=== PATIENT | female | born 1960 | race Caucasian/White ===

== ENCOUNTER 2021-06-23 10:01 | Day surgery (SDC) | payer OTHER, SELFPAY ==
[2021-06-23] VITALS (8 sets, daily range): BP systolic 91–127; BP diastolic 57–79; PULSE 61–78; RESP 10–20; TEMP 36.1–36.9; O2SAT 93–98; BMI 38.7
[2021-06-23] MEDS: LACTATED RINGERS 1,000 ML 84 ML IV (10:49)
--- NOTE | 2021-06-23 12:00 | PM.PREOP ---
Pre-operative Note COVID-19 COVID-19 status: Negative Result date/Date tested (Pos, Neg/Pending): 06/22/21 Interval Note History & Physical reviewed/Exam performed by Physician: Yes Changes to H&P: No ASA Class (for procedural sedation): II
[2021-06-23] MEDS: ONDANSETRON 4 MG/2 ML INJ IV (12:08)
[2021-06-23] MEDS: MIDAZOLAM 5 MG/5 ML VIAL IV (12:28)
[2021-06-23] MEDS: fentaNYL 250 MCG/5 ML INJ IV (12:28)
--- NOTE | 2021-06-23 12:42 | PM.OP.COLON ---
Operative Date/Time/Diagnoses Date of procedure: 06/23/21 Time of procedure: 12:42 Pre-op diagnosis: Rectal bleeding Post-op diagnosis: same Procedure & Clinicians Study performed: Colonoscopy Same procedure as scheduled: Yes Indications: Rectal bleeding Surgeon: Carlitos Dennis Procedure Notes SCOAP/Timeout: Yes Procedure in detail: Procedure: The patient was brought to the endoscopy suite, placed in left lateral decubitus position. The patient was connected to monitoring devices. A time-out was performed. Sedation was administered. Once the patient was adequately sedated, a digital rectal exam was performed and was normal. The scope was then inserted and advanced to the cecum where the appendiceal orifice was identified and photographed. The scope was then slowly withdrawn over greater than 6 minutes. Mucosa was thoroughly inspected. There were no polyps. There were some scattered diverticula in the sigmoid colon. The scope was retroflexed in the rectum. There were some mild internal hemorrhoids. The scope was straightened and removed. The patient was awakened and brought to recovery. Versed: 5 mg Fentanyl: 150 mcg EBL: 0 Findings: Scattered diverticulosis and mild hemorrhoids Scope withdrawal time: 7 Sedation minutes: 27 Findings: divertiulosis Specimen(s): none sent Complications: none Post-procedure Recommendations: Colonoscopy in 10 years Disposition: PACU
--- NOTE | 2021-06-23 12:59 | SUR.PHASEI ---
Received to PACU after colonoscopy with sedation. Report received from ARLYN Contreras.
== END 2021-06-23 14:35 | disposition home or self-care (01) ==
PROVIDERS: PCP Family Medicine; Referring Provider Surgery; Visit Provider Surgery
PROC: 0DJD8ZZ Inspection of Lower Intestinal Tract, Via Natural or Artificial Opening Endoscopic (ICD-10-PCS; CPT 45378; principal; 2021-06-23 10:45)
DX: K92.1 Melena (principal); E11.9 Type 2 diabetes mellitus without complications; E03.9 Hypothyroidism, unspecified; E78.5 Hyperlipidemia, unspecified; K21.9 Gastro-esophageal reflux disease without esophagitis; F32.9 Major depressive disorder, single episode, unspecified; F41.9 Anxiety disorder, unspecified; K57.30 Diverticulosis of large intestine without perforation or abscess without bleeding; K64.8 Other hemorrhoids
CPT/HCPCS: 45378; J2250; J2405; J3010